=== PATIENT | female | born 1990 | race Two or more races ===

== ENCOUNTER 2023-04-27 14:06 | Emergency (ER) | payer OTHER ==
[~2023-04-27] VITALS: Ht 160 cm; Wt 47.6 kg
[2023-04-27] MEDS ORDERED: ZOLOFT25 MG PO (14:43)
== END 2023-04-27 16:33 | disposition home or self-care (01) ==
LOC: ER 14:06
DX: K13.79 Other lesions of oral mucosa (principal); K04.7 Periapical abscess without sinus; R22.0 Localized swelling, mass and lump, head; Z91.013 Allergy to seafood

== ENCOUNTER 2023-05-17 20:28 | Emergency (ER) | payer OTHER ==
[~2023-05-17] VITALS: Ht 160 cm; Wt 45.8 kg
[~2023-05-17 20:28] MED LIST: ZOLOFT25 MG PO
[2023-05-17] MEDS ORDERED: PRENA1 TRUE CO1 EACH (20:39)
== END 2023-05-17 23:26 | disposition home or self-care (01) ==
LOC: ER 20:28
PROVIDERS: General Practice
DX: O20.9 Hemorrhage in early pregnancy, unspecified (principal); Z3A.01 Less than 8 weeks gestation of pregnancy; Z91.013 Allergy to seafood

== ENCOUNTER 2023-05-18 14:38 | Emergency (ER) | payer OTHER ==
[~2023-05-18] VITALS: Ht 160 cm; Wt 45.8 kg
[~2023-05-18 14:38] MED LIST changes: +PRENA1 TRUE CO1 EACH
== END 2023-05-18 19:50 | disposition home or self-care (01) ==
LOC: ER 14:38
PROVIDERS: General Practice
DX: O03.9 Complete or unspecified spontaneous abortion without complication (principal)